=== PATIENT | female | born 1945 | race Caucasian/White ===

== ENCOUNTER 2016-05-22 23:50 | Observation (INO) | payer MEDICARE, OTHER ==
--- NOTE | ~2016-05-22 | HP ---
History And Physical [place] [id number] [facility] [place]. [address] NAME: SARAH RODAS : 45 STATUS : ADM Main PAT#: [id number] AGE: 70 ADM/REG DATE : 05/22/16 MR#: [id number] REPORT SERV DATE: 05/23/16 DICTATED BY: CITLALY LANIER DATE: 05/23/16 REPORT STATUS : Draft TRANSCRIBED BY: MODKaz DATE: 05/23/16 DATE OF ADMISSION: 05/22/2016 CHIEF COMPLAINT: Chest pain with atypical features. HISTORY OF PRESENT ILLNESS: A very pleasant 70-year-old active white female with no known history of CAD, who states that over the past two weeks, she has been awakened by a chest pressure that would resolve with position change, sitting in a high [employer] after approximately one hour. Her concern was that she now feels the chest pressure during the day. This past Sunday, she again experienced the chest pain that would not resolve. She denies any associated shortness of breath, nausea, diaphoresis, or dizziness. She does report some belching. She notified her GI physician, Dr. Ruiz, who reportedly has performed an endoscope in 10/2015 with change of her omeprazole to Protonix and recently increased her Protonix. In talking to his staff, given her symptoms, they recommended that she come to the emergency room for further evaluation and treatment. She rates her chest pain a 5/10 at its most intense. At time of interview in [facility], she describes it as "minimal." She has taken Tums with no improvement in her symptoms. She again had a similar episode this morning. She did not notify staff, but it resolved on its own and lasted an uncertain duration. The patient denies any personal history of myocardial infarction, stroke, DVT, or pulmonary embolus. The patient denies any recent fever or chills. No palpitations. Consumes a quarter cup of coffee per day and some tea. No syncopal episodes. Denies PND or orthopnea. PAST MEDICAL HISTORY: 1. Hypertension. 2. GERD. 3. Cholesterol per PCP and "good.". 4. Osteoporosis. 5. Vertigo. 6. Multiple shingles episodes. 7. Positive family history for early CAD. PAST SURGICAL HISTORY: Blepharoplasty with skin cancer removal and right cataract. SOCIAL HISTORY: She is , with two children. She is a retired school bus operator. She works out with weights three times weekly and on a treadmill four to five times weekly for approximately 30 minutes, most recently yesterday without incident. Denies tobacco, alcohol, or illicits. FAMILY HISTORY: Father of a heart attack at 42. Mother with a history of pulmonary embolus following childbirth, heart attack in her 60s, at the age of 94. REVIEW OF SYSTEMS: A 14-point review of systems performed, significant for HPI. No other contributory diagnoses identified. History And Physical [address] [address] NAME: SARAH RODAS : 45 STATUS : ADM Main PAT#: [id number] AGE: 70 ADM/REG DATE : 05/22/16 MR#: [id number] REPORT SERV DATE: 05/23/16 DICTATED BY: CITLALY LANIER DATE: 05/23/16 REPORT STATUS : Draft TRANSCRIBED BY: KYLAH DATE: 05/23/16 ALLERGIES: NO KNOWN DRUG ALLERGIES. HOME MEDICATIONS: Benazepril 10 mg daily, calcium 500 mg twice daily, Tums p.r.n., vitamin D3 1000 units daily, vitamin B12 500 mcg three times weekly, Restasis eye drops twice daily, fish oil 1000 mg daily, pantoprazole 40 mg twice daily, Systane drops daily, prednisolone drops right eye every other day, Reclast infusion 5 mg yearly, MiraLax p.r.n. PHYSICAL EXAMINATION: VITAL SIGNS: Bilateral blood pressures on arrival, right 145/71, left 121/67, this morning 136/68; pulse 58; respirations 16; temperature 97.6; O2 saturation 96% on room air. Height 5 feet 3 inches, weight 131 pounds, BMI 23. GENERAL: Cooperative, in no apparent distress. HEENT: Pupils 2 mm. Sclera nonicteric. Nares patent. Moist mucous membranes. No xanthelasma. NECK: Trachea midline. No thyromegaly. No JVD. No bruits. LYMPH: No cervical lymphadenopathy. No supraclavicular lymphadenopathy. RESPIRATORY: Unlabored respirations. Breath sounds clear bilaterally to posterior auscultation. No wheezes or rhonchi. CARDIOVASCULAR: Regular rate. No murmur, rub, or gallop appreciated. Extremities without edema. Pulses 2+ bilaterally. ABDOMEN: Soft, nontender, nondistended. Normal bowel sounds auscultated throughout. No organomegaly. SKIN: Warm, dry extremities. No pallor or cyanosis. PSYCHIATRIC: Appropriate affect. Alert, oriented x3. LABORATORY DATA: Troponin less than 0.02 twice. Potassium 3.7, BUN 13, creatinine 0.88, glucose 84, magnesium 1.9. WBC 6.1, hemoglobin 12.8, hematocrit 39.7, platelet count 272,000. EKG, sinus rhythm and sinus bradycardia. MPI, 09/2013: Kraig stage 3, 8-10 METs, no ischemia. ASSESSMENT AND PLAN: 1. Chest pain with atypical features, most likely a GI component. The patient has been observed in the CPOU overnight to rule out myocardial infarction with serial enzymes and serial EKGs and held n.p.o. We will proceed with MPI today. The patient will be discharged home if low risk, no ischemia to follow up with her PCP and GI as appropriate. If anything suggestive of ischemia, Cardiology referral will be initiated. 2. Hypertension, well managed and monitor blood pressure. Continue home medications. 3. Gastroesophageal reflux disease. Mylanta 30 mL p.o. now. Follow up with GI if symptoms persist after negative stress test today. KRISTEN History And Physical [address] [address] NAME: SARAH RODAS : 45 STATUS : ADM Main PAT#: [id number] AGE: 70 ADM/REG DATE : 05/22/16 MR#: [id number] REPORT SERV DATE: 05/23/16 DICTATED BY: CITLALY LANIER DATE: 05/23/16 REPORT STATUS : Draft TRANSCRIBED BY: KYLAH DATE: 05/23/16 ISAAC Diaz, ICU STAFF NURSE-BC / [id number] CC: ISAAC Diaz, ICU STAFF NURSE-BC Tracie Mcbride M.D.
[2016-05-22 20:10] LABS: BASOPHILS 0.7 %; BASOPHILS ABSOLUTE 0.04 10/3/uL (0.0-0.16); EOSINOPHILS 1.6 %; HEMATOCRIT 39.7 % (36.0-48.0); HEMOGLOBIN 12.8 g/dL (12.0-16.0); IMMATURE GRANULOCYTES 0.2 %; IMMATURE GRANULOCYTES ABSOLUTE 0.01 10/3/uL (0.0-0.11); LYMPHOCYTES 22.5 %; LYMPHOCYTES ABSOLUTE 1.37 10/3/uL (0.67-4.30); MEAN CORPUS HGB CONC 32.2 g/dL (32.0-36.0); MEAN CORPUSCULAR HEMOGLOB 26.9 pg (26.0-34.0); MEAN CORPUSCULAR VOLUME 83.6 fL (80-100); MEAN PLATELET VOLUME 10.2 fL (9.2-13.0); MONOCYTES 8.7 %; MONOCYTES ABSOLUTE 0.53 10/3/uL (0.21-1.20); NEUTROPHILS 66.3 %; NEUTROPHILS ABSOLUTE 4.05 10/3/uL (2.02-8.40); RBC DISTRIBUTION WIDTH 14.8 % (12.0-16.0); RED CELL COUNT 4.75 10/6/uL (4.0-5.6); WHITE BLOOD CELLS 6.1 10/3/uL (4.5-10.5)
[2016-05-22 20:11] LABS: MANUAL DIFF NO %; PLATELET COUNT 272 10/3/uL (150-400)
[2016-05-22 20:18] LABS: INTERNATIONAL NORMAL RATI 1.1 UNITS (-); PARTIAL THROMBO TIME 28.4 SEC (22.5-37.2); PROTIME (NOT ORD) 13.8 SEC (12.0-14.5)
[2016-05-22 20:26] LABS: BUN (BLOOD UREA NITROGEN) 13 MG/DL (6-23); CALCIUM, SERUM 9.1 MG/DL (8.5-10.4); CHEST PAIN PROFILE TAT 0 Hrs 20 Mins; CHLORIDE, SERUM 104 MMOL/L (96-112); CO2 (CARBON DIOXIDE) 30 MMOL/L (24-34); CREATININE 0.88 MG/DL (0.55-1.02); GFR AFRICAN AMERICAN 77 ML/MIN (>=60); GFR NON AFRICAN AMERICAN 67 ML/MIN (>=60); GLUCOSE, SERUM 84 MG/DL (60-99); POTASSIUM, SERUM 3.7 MMOL/L (3.5-5.3); SODIUM, SERUM 142 MMOL/L (135-148); TROPONIN I <0.02 NG/ML (<0.05)
[~2016-05-22 23:50] MED LIST: ESTRACE1 MG PO; FISH-EPA1000 MG PO; FRESHKOTE OPH; LOTE10 PO; OS500+D PO; PRILO PO; RESTASIS OPH; SYSTANE ULTR; VITAMIN B 12; VITAMIN D31000 UNIT PO
[2016-05-23] MEDS ORDERED: PREDFORTE OPH (01:40)
[2016-05-23] MEDS ORDERED: RESTASIS OPH (01:40)
[2016-05-23] MEDS ORDERED: LOTE10 PO (01:40)
[2016-05-23] MEDS ORDERED: OS500+D PO (01:40)
[2016-05-23] MEDS ORDERED: PROTONIX PO (01:40)
[2016-05-23] MEDS ORDERED: VITAMIN D31000 UNIT PO (01:41)
[2016-05-23] MEDS ORDERED: B12250T PO (01:41)
[2016-05-23] MEDS ORDERED: FISH-EPA1000 MG PO (01:41)
[2016-05-23] MEDS ORDERED: TUMSROLL PO (01:42)
[2016-05-23] MEDS ORDERED: RECLAST IV (01:42)
[2016-05-23] MEDS ORDERED: SYSTANE OPH (01:42)
== END 2016-05-23 14:21 | disposition home or self-care (01) ==
LOC: ER 23:50 → CDU1 23:59 → CDU2 05-23 03:04
PROVIDERS: Emergency Medicine
DX: R07.89 Other chest pain (principal); I10 Essential (primary) hypertension; K21.9 Gastro-esophageal reflux disease without esophagitis; M81.0 Age-related osteoporosis without current pathological fracture; R42 Dizziness and giddiness
CPT/HCPCS: 71010; 78452; 80048; 83735; 84484; 85025; 85610; 85730; 93005; 93017; 99285; A9270-GY; A9502; G0378